=== PATIENT | female | born 1955 | race Caucasian/White ===

== ENCOUNTER 2018-07-01 22:49 | Emergency (ER) | payer BC, OTHER ==
[2018-07-01] MEDS ORDERED: Pantoprazole 40 MG VIAL ONE (23:41)
[2018-07-01] MEDS ORDERED: Morphine 4 MG/ML VIAL ONE (23:41)
[2018-07-01] MEDS ORDERED: Prochlorperazine 10 MG/2 ML VIAL ONE (23:41)
[2018-07-01 23:46] LABS: #Basophils 0.2 thou/uL (0.0-0.2); #Eosinphils 0.3 thou/uL (0.0-0.7); #Lymphocytes 2.1 thou/uL (1.20-3.40); %Basophils 1.1 % (0.0-1.0); %Eosinophils 2.1 % (0.0-10.0); %Lymphocytes 14.4 % (21.0-51.0); %Monocytes 6.8 % (0.0-10.0); %Neutrophils 75.7 % (42.0-75.0); Hemoglobin 15.2 g/dL (12.0-16.0); Mean Corpuscular HGB CONC 33.4 g/dL (32.0-36.0); Mean Corpuscular Hemoglobin 27.9 pg (27.0-31.0); Mean Corpuscular Volume 83.5 fL (78.0-98.0); Mean Platelet Volume 7.7 fL (7.4-10.4); Platelet Count 321 thou/uL (130-400); RBC Distribution Width 13.1 % (11.5-14.5); Red Blood Cell (RBC) Count 5.44 mill/uL (4.20-5.40); White Blood Cell (WBC) Count 14.5 thou/uL (4.8-10.8)
[2018-07-01 23:56] LABS: ALT (SGPT) 20 U/L (8-55); AST (SGOT) 17 U/L (5-34); Albumin 4.4 g/dL (3.4-4.8); Alkaline Phosphatase 107 U/L (40-150); Anion Gap 15 mmol/L (10-20); BUN (Urea Nitrogen) 13 mg/dL (9.8-20.1); Bilirubin, Total 0.3 mg/dL (0.2-1.2); Calc. Creatinine Clearance 0 mL/min (70-130); Calcium 10.1 mg/dL (7.8-10.44); Carbon Dioxide 31 mmol/L (23-31); Chloride 100 mmol/L (98-107); Estimated GFR-MDRD 68; Globulin 2.9 g/dL (2.4-3.5); Glucose 109 mg/dL (80-115); Lipase 29 U/L (8-78); Potassium 3.8 mmol/L (3.5-5.1); Protein, Total 7.3 g/dL (6.0-8.3); Sodium 142 mmol/L (136-145)
[2018-07-02 00:22] LABS: Bilirubin Negative (Negative); Blood, Urine Negative (Negative); Clarity Slightly Cloudy (Clear); Glucose, Urine (Dipstick) Negative (Negative); Leukocyte Negative (Negative); Nitrite Negative (Negative); Protein, Urine (Dipstick) 30 mg/dL (Neg-Trace); Specific Gravity, Urine 1.015 (1.005-1.030); Urobilinogen 0.2 mg/dL (0.2-1.0)
[2018-07-02 00:25] LABS: Bacteria/HPF None Seen HPF (None Seen); RBC/HPF 0-3 HPF (0-3); Squamous Epithelial 0-3 HPF (0-3); WBC/HPF 0-3 HPF (0-3)
[2018-07-02 00:26] LABS: Crystals/HPF 1+ AMORPH PHOS HPF (Negative); Hyaline Casts/LPF 0-3 HYALINE CAST LPF (0-3 Hyaline)
--- NOTE | 2018-07-02 08:14 | ULT ---
PRELIMINARY REPORT/[facility]/EMERGENTY AFTER-HOURS PROCEDURE US Abdomen Limited EXAM DATE/TIME: 07/02/2018 12:51 AM CLINICAL HISTORY: 63 years old, female; Pain and signs and symptoms; Nausea and vomiting and other: Diarrhea; Abdominal pain; Other: Epigastric pain that radiates to back TECHNIQUE: Real-time ultrasound of the abdomen with image documentation. Examination is focused on the region of clinical interest. COMPARISON: No relevant prior studies available. FINDINGS: Liver: Slight increased echogenicity of the liver may indicate fatty infiltration. Otherwise unremark able liver, no focal abnormality. Gallbladder: No cholelithiasis. No gallbladder wall thickening or pericholecystic fluid. The gallbladder does not appear abnormally d istended at this time. Common bile duct: No biliary dilation, common duct measures 7 mm. Pancreas: The pancreatic duct is visible and appears upper range of normal in size, measuring 2 or 3 mm. Significance uncertain. If there is suspicion for pancreatitis, correlation with laboratory value s may be helpful. Visible pancreas otherwise appears essentially unremarkable by ultrasound. No visible peripancreatic fluid. Right kidney: Images of the right kidney show no hydronephrosis. IMPRESSION: 1. No cholelithiasis or biliary tree dilation. 2. The pancreatic duct is upper range of normal in size, see above details. 3. Other findings discussed above. Thank you for allowing us to participate in the care of your patient. Dictated and Authenticated by: Conor Israel MD 07/02/2018 2:07 AM Central Time ([place] & [place]) FINAL REPORT EMERGENCY AFTER HOURS RIGHT UPPER QUADRANT ULTRASOUND: Date: 07/02/18 HISTORY: Right upper quadrant abdominal pain. IMPRESSION: 1. Fatty infiltration of the liver. 2. No gallbladder calculi seen. Common duct is normal in caliber, measuring 0.5 cm in diameter. 3. Pancreatic duct, where visualized at level of visualized body of the pancreas is at the upper [place] its of normal in size. As noted on preliminary report, the significance is uncertain. If there is con cern for pancreatitis, correlation with laboratory values may be helpful. Findings are in agreement with the preliminary report by [place]. POS: [facility]
== END 2018-07-02 02:22 | disposition home or self-care (01) ==
LOC: SCSER 22:49
DX: K52.9 Noninfective gastroenteritis and colitis, unspecified (principal); J45.909 Unspecified asthma, uncomplicated
CPT/HCPCS: 76705; 80053; 81003; 81015; 83605; 83690; 85025; 93005; 96361; 96374; 96375; C9113; J0780; J2270